=== PATIENT | male | born 1965 | race Caucasian/White ===

== ENCOUNTER 2019-10-19 14:18 | Inpatient (IN) | payer OTHER ==
[2019-10-19 17:15] VITALS: BMI 32.9
--- NOTE | 2019-10-19 17:44 | HP ---
COWS - Scale Resting Pulse: 0= [place] 80 or Below Sweatin=Flushed/Facial Moisture Restless Observation: 0= Sits Still Pupil Size: 0= Normal to Room Light Bone or Joint Aches: 1= Mild Discomfort Runny Nose/ Eye Tearin= Nasal Congestion GI Upset > 30mins: 3= Vomiting/Diarrhea (vomiting x 3, no diarrhea) Tremor Observation: 2= Slight Tremor Visible Yawning Observation: 0= None Anxiety or Irritability: 2=Irritable/Anxious Goose Flesh Skin: 3=Piloerection COWS Score: 14 CIWA Score - Admission Criteria OASAS Guidelines: Admission for Medically Managed Detox: Requires at least one of the followin. CIWA greater than 12 2. Seizures within the past 24 hours 3. Delirium tremens within the past 24 hours 4. Hallucinations within the past 24 hours 5. Acute intervention needed for co occurring medical disorder 6. Acute intervention needed for co occurring psychiatric disorder 7. Severe withdrawal that cannot be handled at a lower level of care (continued vomiting, continued diarrhea, abnormal vital signs) requiring intravenous medication and/or fluids 8. Admission [facility] Chief Complaint: Heroin withdrawal symptoms Allergies/Adverse Reactions: Allergies Allergy/AdvReac Type Severity Reaction Status Date / Time No Known Allergies Allergy Verified 10/19/19 17:39 History of Present Illness: 53 years old male is seeking admission to detox from heroin. This is his first admission to [facility]. He reports that he started using heroin at age 25, stopped using for 12 years, 9 months and started using again in May 2019. His last detoxification was at [facility]. He uses 2 bags of heroin daily. He denies medical history, psych. history and suicidal ideation at this time. He denies blackouts and history of overdose. He is employed in construction, lives with his in [place] and denies legal issues. Exam Limitations: No Limitations - Ebola screening Have you traveled outside of the country in the last 21 days: No Have you had contact with anyone from an Ebola affected area: No Have you been sick,other than usual withdrawal symptoms: No Do you have a fever: No - Review of Systems Constitutional: Chills, Loss of Appetite, Malaise, Night Sweats, Changes in sleep EENT: reports: Nose Congestion Respiratory: reports: No Symptoms reported Cardiac: reports: No Symptoms Reported GI: reports: Constipated, Nausea, Poor Appetite, Poor Fluid Intake, Vomiting (x 3), Abdominal cramping : reports: No Symptoms Reported Musculoskeletal: reports: No Symptoms Reported Integumentary: reports: Dryness, Flushing Neuro: reports: Tremors Endocrine: reports: No Symptoms Reported Hematology: reports: No Symptoms Reported Psychiatric: reports: Mood/Affect Appropiate, Orientated x3 Other Systems: Reviewed and Negative Patient History - Patient Medical History Hx Anemia: No Hx Asthma: No Hx Chronic Obstructive Pulmonary Disease (COPD): No Hx Cancer: No Hx Cardiac Disorders: No Hx Congestive Heart Failure: No Hx Hypertension: No Hx Hypercholesterolemia: No HX Cerebrovascular Accident: No Hx Seizures: No Hx Diabetes: No Hx Gastrointestinal Disorders: No Hx Liver Disease: No Hx Genitourinary Disorders: No Hx Sexually Transmitted Disorders: No Hx Renal Disease (ESRD): No Hx Thyroid Disease: No Hx Human Immunodeficiency Virus (HIV): No (Negative 2008) Hx Hepatitis C: No Hx Depression: Yes Hx Suicide Attempt: No (Denies suicidal ideation at this time) Hx Bipolar Disorder: No Hx Schizophrenia: No - Patient Surgical History Past Surgical History: No - PPD History Previous Implant?: Yes (PPD POSITIVE) Documented Results: Positive w/o proof Implanted On Prior R Admission?: No PPD to be Administered?: No - Reproductive History Patient is a Female of Child Bearing Age (11 -55 yrs old): No (male) - Smoking Cessation Smoking history: Current every day smoker Have you smoked in the past 12 months: Yes Aproximately how many cigarettes per day: 20 Hx Chewing Tobacco Use: No Initiated information on smoking cessation: Yes 'Breaking Loose' booklet given: 10/19/19 - Substance & Tx. History Hx Alcohol Use: No Hx Substance Use: Yes Substance Use Type: Heroin, Opiates Hx Substance Use Treatment: Yes ([place], [place]) - Substances abused Heroin Substance route: Inhalation Frequency: Daily Amount used: 2 bags Age of first use: 25 Date of last use: 10/19/19 Admission Physical Exam BHS - Vital Signs Vital Signs: Vital Signs - 24 hr 10/19/19 17:14 Temperature 97.5 F L Pulse Rate 76 Respiratory 18 Rate Blood Pressure 133/88 - Physical General Appearance: Yes: Moderate Distress, Tremorous, Sweating HEENTM: Yes: Within Normal Limits Respiratory: Yes: Lungs Clear, Normal Breath Sounds, No Respiratory Distress Neck: Yes: Within Normal Limits Breast: Yes: Breast Exam Deferred Cardiology: Yes: Regular Rhythm, Regular Rate Abdominal: Yes: Normal Bowel Sounds, Protuberent Genitourinary: Yes: Within Normal Limits Back: Yes: Normal Inspection Musculoskeletal: Yes: Within Normal Limits Extremities: Yes: Tremors Neurological: Yes: Within Normal Limits Integumentary: Yes: Warm - Diagnostic (1) Opioid dependence, uncomplicated Current Visit: Yes Status: Acute (2) Nicotine dependence Current Visit: Yes Status: Chronic Qualifiers: Nicotine product type: cigarettes Substance use status: uncomplicated Qualified Code(s): F17.210 - Nicotine dependence, cigarettes, uncomplicated (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
[2019-10-19] MEDS ORDERED: MENTHOL/PHENOL 1 EACH UD MM PRN (17:54)
[2019-10-19] MEDS ORDERED: BISMUTH SUBSALICYLATE 524 MG/30 ML UD PO PRN (17:54)
[2019-10-19] MEDS ORDERED: METHOCARBAMOL 500 MG TABLET PO PRN (17:54)
[2019-10-19] MEDS ORDERED: ACETAMINOPHEN 325 MG TABLET (FP) PO PRN ×2 (17:54)
[2019-10-19] MEDS ORDERED: MAGNESIUM HYDROX 2400MG/30ML ORAL SUSPENSION 30 ML CUP PO PRN (17:54)
[2019-10-19] MEDS ORDERED: MAGNESIUM CITRATE 300 ML BOTTLE PO PRN (17:54)
[2019-10-19] MEDS ORDERED: MAG HYDROX/AL HYDROX/SIMETH 30 ML UNIT-DOSE CUP PO PRN (17:54)
[2019-10-19] MEDS ORDERED: IBUPROFEN 400 MG TABLET (FP) PO PRN (17:54)
[2019-10-19] MEDS ORDERED: ONDANSETRON *ODT* 4 MG TABLET SL PRN (17:54)
[2019-10-19] MEDS ORDERED: METHADONE HCL 10 MG TABLET (FOR DETOX USE ONLY) PO ONE (17:58)
[2019-10-19] MEDS ORDERED: METHADONE (DETOX) 20 MG, METHADONE (DETOX) 5 MG PO ONE (19:00)
[2019-10-19] MEDS ORDERED: METHADONE HCL 5 MG TABLET (FOR DETOX USE ONLY) ONE (19:17)
[2019-10-19] MEDS ORDERED: METHADONE HCL 10 MG TABLET (FOR DETOX USE ONLY) ONE (19:17)
[2019-10-19] MEDS: NICOTINE POLACRILEX 2 MG GUM BUC PRN (22:22)
[2019-10-19] MEDS: MELATONIN 5 MG TABLETS PO SCH (22:22)
[2019-10-19] MEDS: THIAMINE HCL 100 MG TABLET (FP) PO SCH (22:22)
[2019-10-20] MEDS ORDERED: MASKS NR ONE (07:02)
--- NOTE | 2019-10-20 09:02 | EKG ---
Test Reason : Blood Pressure : / mmHG Vent. Rate : 065 BPM Atrial Rate : 065 BPM P-R Int : 176 ms QRS Dur : 094 ms QT Int : 410 ms P-R-T Axes : 048 -31 -09 degrees QTc Int : 426 ms NORMAL SINUS RHYTHM LEFT AXIS DEVIATION INCREASED R/S RATIO IN V1, CONSIDER EARLY TRANSITION OR POSTERIOR INFARCT ABNORMAL ECG NO PREVIOUS ECGS AVAILABLE Confirmed by NADINE DUNLAP MD ([id number]) on 10/20/2019 9:02:36 AM Referred By: Confirmed By:NADINE DUNLAP MD
[2019-10-20] MEDS ORDERED: METHADONE HCL 10 MG TABLET (FOR DETOX USE ONLY) PO ONE (10:00)
[2019-10-20] MEDS: NICOTINE 21 MG/24 HOURS TOPICAL PATCH TD SCH (10:25)
[2019-10-20] MEDS: PRENATAL VITAMINS W/ FOLIC ACID TABLET (FP) PO SCH (10:25)
--- NOTE | 2019-10-20 10:40 | PN ---
BHS COWS - Scale Resting Pulse: 0= [place] 80 or Below Sweatin= Chills/Flushing Restless Observation: 0= Sits Still Pupil Size: 0= Normal to Room Light Bone or Joint Aches: 1= Mild Discomfort Runny Nose/ Eye Tearin= Nasal Congestion GI Upset > 30mins: 0= None Tremor Observation of Outstretched Hands: 1= Tremor [place], Not Seen Yawning Observation: 1= 1-2x During Session Anxiety or Irritability: 1=Feels Anxious/Irritable Goose Flesh Skin: 0=Smooth Skin COWS Score: 6 BHS Progress Note (SOAP) Subjective: body aches chills anxiety Objective: 10/20/19 10:39 Vital Signs Temperature 97.5 F L 10/20/19 05:37 Pulse Rate 63 10/20/19 05:37 Respiratory Rate 20 10/20/19 05:37 Blood Pressure 119/70 10/20/19 05:37 O2 Sat by Pulse Oximetry (%) 97 10/20/19 05:37 labs pending [id number] sitting at edge of bed no acute distress Assessment: 10/20/19 10:39 withdrawals Plan: continue detox
[2019-10-20 10:41] LABS: HEMATOCRIT 42.5 % (35.4-49); HEMOGLOBIN 14.4 GM/dL (11.7-16.9); MCH 31.1 pg (25.7-33.7); MCHC 33.9 g/dl (32.0-35.9); MEAN CELL VOLUME 91.8 fl (80-96); MEAN PLT VOLUME 9.7 fl (7.5-11.1); PLATELET COUNT 180 K/MM3 (134-434); RBC 4.62 M/mm3 (4.00-5.60); RDW 13.3 % (11.9-15.9); WHITE BLOOD COUNT 7.9 K/mm3 (4.0-10.0)
[2019-10-20 10:56] LABS: ALBUMIN 3.5 g/dl (3.4-5.0); BILIRUBIN,TOTAL 0.6 mg/dL (0.2-1); BLOOD UREA NITROGEN 15.5 mg/dL (7-18); CALCIUM 9.3 mg/dL (8.5-10.1); CREATININE 0.8 mg/dL (0.55-1.3); TOT PROT 6.7 g/dl (6.4-8.2)
[2019-10-20] MEDS: MELATONIN 5 MG TABLETS PO SCH (22:28)
[2019-10-20] MEDS: THIAMINE HCL 100 MG TABLET (FP) PO SCH (22:28)
[2019-10-20] MEDS: NICOTINE POLACRILEX 2 MG GUM BUC PRN (22:29)
[2019-10-21] MEDS: NICOTINE POLACRILEX 2 MG GUM BUC PRN ×2 (07:20→10:42)
[2019-10-21] MEDS ORDERED: METHADONE HCL 5 MG TABLET (FOR DETOX USE ONLY) PO ONE (10:00)
[2019-10-21] MEDS: PRENATAL VITAMINS W/ FOLIC ACID TABLET (FP) PO SCH (10:42)
[2019-10-21] MEDS: NICOTINE 21 MG/24 HOURS TOPICAL PATCH TD SCH (10:42)
--- NOTE | 2019-10-21 18:04 | PN ---
BHS COWS - Scale Resting Pulse: 1= [place] 81-100 Sweatin= Chills/Flushing Restless Observation: 1= Difficult to Sit Still Pupil Size: 0= Normal to Room Light Bone or Joint Aches: 2= Severe Diffuse Aches Runny Nose/ Eye Tearin= None GI Upset > 30mins: 0= None Tremor Observation of Outstretched Hands: 0= None Yawning Observation: 1= 1-2x During Session Anxiety or Irritability: 2=Irritable/Anxious Goose Flesh Skin: 0=Smooth Skin COWS Score: 8 BHS Progress Note (SOAP) Subjective: Body Aches, Anxious, Chills, Fatigue. Patient reports That Current withdrawal Detox Symptoms in General Are Gradually Beginning to Diminish in Severity. Objective: Patient A & O X 3, Observed Ambulating on Detox Unit Unassisted. In No Acute Distress. 10/21/19 18:04 Vital Signs Temperature 98.1 F 10/21/19 12:35 Pulse Rate 82 10/21/19 12:35 Respiratory Rate 18 10/21/19 12:35 Blood Pressure 139/79 10/21/19 12:35 O2 Sat by Pulse Oximetry (%) 96 10/21/19 12:35 Laboratory Tests 10/19/19 10/20/19 10/20/19 18:50 08:10 08:10 WBC 7.9 RBC 4.62 Hgb 14.4 Hct 42.5 MCV 91.8 MCH 31.1 MCHC 33.9 RDW 13.3 Plt Count 180 MPV 9.7 Sodium Potassium Chloride Carbon Dioxide Anion Gap BUN Creatinine Est GFR (CKD-EPI)AfAm Est GFR (CKD-EPI)NonAf Random Glucose Calcium Total Bilirubin AST ALT Alkaline Phosphatase Total Protein Albumin Syphilis Serology Non-reactive COVID-19 (HARVINDER) Not detected 10/20/19 08:10 WBC RBC Hgb Hct MCV MCH MCHC RDW Plt Count MPV Sodium 138 Potassium 4.0 Chloride 102 Carbon Dioxide 29 Anion Gap 6 L BUN 15.5 Creatinine 0.8 Est GFR (CKD-EPI)AfAm 118.20 Est GFR (CKD-EPI)NonAf 101.99 Random Glucose 98 Calcium 9.3 Total Bilirubin 0.6 AST 14 L ALT 37 Alkaline Phosphatase 118 H Total Protein 6.7 Albumin 3.5 Syphilis Serology COVID-19 (HARVINDER) Lab Results noted. Assessment: 10/21/19 18:05 WITHDRAWAL SYMPTOMS. Plan: Continue Detox. Increase Daily Oral Water Intake.
[2019-10-21] MEDS: THIAMINE HCL 100 MG TABLET (FP) PO SCH (22:13)
[2019-10-21] MEDS: MELATONIN 5 MG TABLETS PO SCH (22:13)
[2019-10-22] MEDS ORDERED: METHADONE HCL 10 MG TABLET (FOR DETOX USE ONLY) PO ONE (10:00)
[2019-10-22] MEDS: NICOTINE 21 MG/24 HOURS TOPICAL PATCH TD SCH (10:24)
[2019-10-22] MEDS: PRENATAL VITAMINS W/ FOLIC ACID TABLET (FP) PO SCH (10:24)
[2019-10-22] MEDS: NICOTINE POLACRILEX 2 MG GUM BUC PRN ×2 (10:25→22:10)
--- NOTE | 2019-10-22 19:03 | PN ---
BHS COWS - Scale Resting Pulse: 0= [place] 80 or Below Sweatin= No chills or Flushing Restless Observation: 0= Sits Still Pupil Size: 0= Normal to Room Light Bone or Joint Aches: 1= Mild Discomfort Runny Nose/ Eye Tearin= Nasal Congestion GI Upset > 30mins: 1= Stomach Cramp Tremor Observation of Outstretched Hands: 0= None Yawning Observation: 0= None Anxiety or Irritability: 1=Feels Anxious/Irritable Goose Flesh Skin: 0=Smooth Skin COWS Score: 4 BHS Progress Note (SOAP) Subjective: Feels ok, patient requesting to be discharged at 6am tomorrow because has to work tomorrow Objective: 10/22/19 19:01 Last Vital Signs Temp Pulse Resp BP Pulse Ox 97.7 F 78 20 144/81 95 10/22/19 09:30 10/22/19 09:30 10/22/19 09:30 10/22/19 09:30 10/22/19 06:07 Elevated b/p noted Laboratory Tests 10/19/19 10/20/19 10/20/19 18:50 08:10 08:10 WBC 7.9 RBC 4.62 Hgb 14.4 Hct 42.5 MCV 91.8 MCH 31.1 MCHC 33.9 RDW 13.3 Plt Count 180 MPV 9.7 Sodium Potassium Chloride Carbon Dioxide Anion Gap BUN Creatinine Est GFR (CKD-EPI)AfAm Est GFR (CKD-EPI)NonAf Random Glucose Calcium Total Bilirubin AST ALT Alkaline Phosphatase Total Protein Albumin Syphilis Serology Non-reactive COVID-19 (HARVINDER) Not detected 10/20/19 08:10 WBC RBC Hgb Hct MCV MCH MCHC RDW Plt Count MPV Sodium 138 Potassium 4.0 Chloride 102 Carbon Dioxide 29 Anion Gap 6 L BUN 15.5 Creatinine 0.8 Est GFR (CKD-EPI)AfAm 118.20 Est GFR (CKD-EPI)NonAf 101.99 Random Glucose 98 Calcium 9.3 Total Bilirubin 0.6 AST 14 L ALT 37 Alkaline Phosphatase 118 H Total Protein 6.7 Albumin 3.5 Syphilis Serology COVID-19 (HARVINDER) Labs reviewed Assessment: 10/22/19 19:01 Withdrawal sxs Elevated b/p noted Plan: Continue detox Encourage PO water intake Pt scheduled for discharge tomorrow Elevated b/p: denies htn, monitor b/p, follow up with PCP for monitoring
[2019-10-22] MEDS: THIAMINE HCL 100 MG TABLET (FP) PO SCH (22:09)
[2019-10-22] MEDS: MELATONIN 5 MG TABLETS PO SCH (22:10)
[2019-10-23 06:25] VITALS: BP 145/95; PULSE 66; TEMP 97.3
--- NOTE | 2019-10-23 07:08 | DS ---
[facility] Detox Discharge Summary Admission Date: 10/19/19 Discharge Date: 10/23/19 - History Additional Comments: Patient is being discharged today. He was detoxed safely and responded well to therapy. He is alert and oriented x 3, ambulates independently, in acute distress and vital signs stable.He has no home medications. Pertinent Past History: Opioid dependence Nicotine dependence PPD positive - Physical Exam Results Vital Signs: Vital Signs Temperature 97.3 F L 10/23/19 05:41 Pulse Rate 66 10/23/19 05:41 Respiratory Rate 20 10/23/19 05:41 Blood Pressure 145/95 10/23/19 05:41 O2 Sat by Pulse Oximetry (%) 100 10/22/19 20:32 Laboratory Last Values WBC 7.9 K/mm3 (4.0-10.0) 10/20/19 08:10 RBC 4.62 M/mm3 (4.00-5.60) 10/20/19 08:10 Hgb 14.4 GM/dL (11.7-16.9) 10/20/19 08:10 Hct 42.5 % (35.4-49) 10/20/19 08:10 MCV 91.8 fl (80-96) 10/20/19 08:10 MCH 31.1 pg (25.7-33.7) 10/20/19 08:10 MCHC 33.9 g/dl (32.0-35.9) 10/20/19 08:10 RDW 13.3 % (11.9-15.9) 10/20/19 08:10 Plt Count 180 K/MM3 (134-434) 10/20/19 08:10 MPV 9.7 fl (7.5-11.1) 10/20/19 08:10 Sodium 138 mmol/L (136-145) 10/20/19 08:10 Potassium 4.0 mmol/L (3.5-5.1) 10/20/19 08:10 Chloride 102 mmol/L (98-107) 10/20/19 08:10 Carbon Dioxide 29 mmol/L (21-32) 10/20/19 08:10 Anion Gap 6 MMOL/L (8-16) L 10/20/19 08:10 BUN 15.5 mg/dL (7-18) 10/20/19 08:10 Creatinine 0.8 mg/dL (0.55-1.3) 10/20/19 08:10 Est GFR (CKD-EPI)AfAm 118.20 10/20/19 08:10 Est GFR (CKD-EPI)NonAf 101.99 10/20/19 08:10 Random Glucose 98 mg/dL (74-106) 10/20/19 08:10 Calcium 9.3 mg/dL (8.5-10.1) 10/20/19 08:10 Total Bilirubin 0.6 mg/dL (0.2-1) 10/20/19 08:10 AST 14 U/L (15-37) L 10/20/19 08:10 ALT 37 U/L (13-61) 10/20/19 08:10 Alkaline Phosphatase 118 U/L (45-117) H 10/20/19 08:10 Total Protein 6.7 g/dl (6.4-8.2) 10/20/19 08:10 Albumin 3.5 g/dl (3.4-5.0) 10/20/19 08:10 Syphilis Serology Non-reactive (NONREACTIVE) 10/20/19 08:10 COVID-19 (HARVINDER) Not detected (Not Detected) 10/19/19 18:50 Labs reviewed Pertinent Admission Physical Exam Findings: Opioid dependence - Medication Discharge Medications: Ambulatory Orders NK [No Known Home Medication] 10/19/19 - Diagnosis (1) Opioid dependence, uncomplicated Current Visit: Yes Status: Chronic (2) Nicotine dependence Current Visit: Yes Status: Chronic Qualifiers: Nicotine product type: cigarettes Substance use status: uncomplicated Qualified Code(s): F17.210 - Nicotine dependence, cigarettes, uncomplicated (3) PPD positive Current Visit: Yes Status: Chronic - AMA Did Patient Leave Against Medical Advice: No
[2019-10-23] MEDS ORDERED: METHADONE HCL 5 MG TABLET (FOR DETOX USE ONLY) PO ONE (10:00)
== END 2019-10-23 06:45 | disposition home or self-care (01) | DRG 773 ==
LOC: YASAS 14:18 → Y6N 18:44
PROVIDERS: ADMIT Allergy & Immunology; ATTEND Allergy & Immunology
PROC: HZ2ZZZZ Detoxification Services for Substance Abuse Treatment (ICD-10-PCS; principal; 2019-10-19)
DX: F11.23 Opioid dependence with withdrawal (principal); F17.210 Nicotine dependence, cigarettes, uncomplicated; F32.9 Major depressive disorder, single episode, unspecified; R76.11 Nonspecific reaction to tuberculin skin test without active tuberculosis
CPT/HCPCS: 36415; 71046-TC-FY; 80053; 85027; 86780; 93005; 93010; U0003

== ENCOUNTER 2022-01-14 10:11 | Inpatient (IN) | payer BC ==
[2022-01-14 10:49] VITALS: BMI 27.8
[2022-01-14] MEDS ORDERED: NICOTINE POLACRILEX 4 MG GUM BUC PRN (11:02)
[2022-01-14] MEDS ORDERED: BENZOCAINE/MENTHOL (CHLORASEPTIC ) LOZENGE MM PRN (11:02)
[2022-01-14] MEDS ORDERED: MAG HYDROX/AL HYDROX/SIMETH 30 ML UNIT-DOSE CUP PO PRN (11:02)
[2022-01-14] MEDS ORDERED: LOPERAMIDE HCL 2 MG CAPSULE PO PRN (11:02)
[2022-01-14] MEDS ORDERED: MAGNESIUM HYDROX 2400MG/30ML ORAL SUSPENSION 30 ML CUP PO PRN (11:02)
[2022-01-14] MEDS ORDERED: IBUPROFEN 400 MG TABLET (FP) PO PRN (11:02)
[2022-01-14] MEDS ORDERED: DICYCLOMINE HCL 10 MG CAPSULE PO PRN (11:02)
[2022-01-14] MEDS ORDERED: POLYETHYLENE GLYCOL (HEALTHYLAX) 3350 17 GM PACKET PO PRN (11:02)
[2022-01-14] MEDS ORDERED: NICOTINE 21 MG/24 HOURS TOPICAL PATCH TD PRN (11:02)
[2022-01-14] MEDS ORDERED: NALOXONE HCL (KLOXXADO) 8 MG SPRAY NS PRN (11:02)
[2022-01-14] MEDS ORDERED: ACETAMINOPHEN 325 MG TABLET (FP) PO PRN ×2 (11:02)
[2022-01-14] MEDS ORDERED: BISMUTH SUBSALICYLATE 262 MG/15 ML BTL PO PRN (11:02)
[2022-01-14] MEDS ORDERED: NICOTINE 10 MG CARTRIDGE (INHALER) IH PRN (11:02)
[2022-01-14] MEDS ORDERED: ONDANSETRON *ODT* 4 MG TABLET SL PRN (11:02)
[2022-01-14] MEDS ORDERED: methaDONE HCL 10 MG TABLET (FOR DETOX USE ONLY) PO ONE (11:02)
[2022-01-14] MEDS ORDERED: methaDONE HCL 10 MG TABLET (FOR DETOX USE ONLY) ONE (12:14)
[2022-01-14] MEDS: hydrOXYzine PAMOATE 25 MG CAPSULE (FP) PO PRN ×2 (16:46→22:51)
[2022-01-14] MEDS: METHOCARBAMOL 500 MG TABLET PO PRN (16:46)
[2022-01-14] MEDS: AMMONIUM LACTATE 12% LOTION 225 GM BOTTLE TP SCH (22:50)
[2022-01-14] MEDS: MELATONIN 5 MG TABLETS PO SCH (22:50)
[2022-01-14] MEDS: THIAMINE HCL 100 MG TABLET (FP) PO SCH (22:50)
[2022-01-15 07:57] VITALS: RESP 18
[2022-01-15] MEDS: hydrOXYzine PAMOATE 25 MG CAPSULE (FP) PO PRN (09:43)
[2022-01-15] MEDS: IBUPROFEN 600 MG TABLET (FP) PO PRN (09:44)
[2022-01-15] MEDS: METHOCARBAMOL 500 MG TABLET PO PRN (09:44)
[2022-01-15] MEDS ORDERED: PRENATAL VITAMINS W/ FOLIC ACID TABLET (FP) PO SCH (10:00)
[2022-01-15 10:10] LABS: HEMATOCRIT 42.6 % (35.4-49); MCH 29.9 pg (25.7-33.7); MCHC 32.9 g/dl (32.0-35.9); MEAN CELL VOLUME 90.9 fl (80-96); MEAN PLT VOLUME 8.9 fl (7.5-11.1); PLATELET COUNT 189 10^3/uL (134-434); RBC 4.69 M/mm3 (4.00-5.60); RDW 13.5 % (11.9-15.9); WHITE BLOOD COUNT 4.6 K/mm3 (4.0-10.0)
[2022-01-15 10:51] LABS: ALBUMIN 3.1 g/dl (3.4-5.0)
[2022-01-15 10:53] LABS: BLOOD UREA NITROGEN 14.2 mg/dL (7-18); CALCIUM 8.9 mg/dL (8.5-10.1)
[2022-01-15 10:55] LABS: BILIRUBIN,TOTAL 0.3 mg/dL (0.2-1); TOT PROT 5.8 g/dl (6.4-8.2)
[2022-01-15] MEDS: AMMONIUM LACTATE 12% LOTION 225 GM BOTTLE TP SCH ×2 (11:11→23:12)
[2022-01-15] MEDS: MELATONIN 5 MG TABLETS PO SCH (23:12)
[2022-01-15] MEDS: THIAMINE HCL 100 MG TABLET (FP) PO SCH (23:12)
[2022-01-16] MEDS: METHOCARBAMOL 500 MG TABLET PO PRN (03:07)
[2022-01-16] MEDS: hydrOXYzine PAMOATE 25 MG CAPSULE (FP) PO PRN (03:07)
[2022-01-16] MEDS: IBUPROFEN 600 MG TABLET (FP) PO PRN (03:08)
[2022-01-16 07:25] VITALS: BP 140/79; PULSE 64; TEMP 97.7
[2022-01-16] MEDS ORDERED: methaDONE HCL 10 MG TABLET (FOR DETOX USE ONLY) PO ONE (10:00)
[2022-01-18] MEDS ORDERED: methaDONE HCL 10 MG TABLET (FOR DETOX USE ONLY) PO ONE (10:00)
== END 2022-01-16 08:07 | disposition left against medical advice (07) | DRG 770 ==
LOC: YASAS 10:11 → Y6N 11:30
PROVIDERS: ADMIT Allergy & Immunology; ATTEND Surgery
PROC: HZ2ZZZZ Detoxification Services for Substance Abuse Treatment (ICD-10-PCS; principal; 2022-01-14)
DX: F11.23 Opioid dependence with withdrawal (principal); F17.210 Nicotine dependence, cigarettes, uncomplicated; U07.1 COVID-19; R76.11 Nonspecific reaction to tuberculin skin test without active tuberculosis
CPT/HCPCS: 36415; 80053; 85027; 86780; 93005; 93010; C9803-CS; U0003; U0005

== ENCOUNTER 2022-05-14 17:26 | Inpatient (IN) | payer BC ==
[2022-05-14 19:17] VITALS: BMI 29.0
[2022-05-14] MEDS ORDERED: P-EPHED 60MG/TRIPROLIDI 2.5MG TABLET PO PRN (20:14)
[2022-05-14] MEDS ORDERED: ACETAMINOPHEN 325 MG TABLET (FP) PO PRN ×2 (20:14)
[2022-05-14] MEDS ORDERED: LOPERAMIDE HCL 2 MG CAPSULE PO PRN (20:14)
[2022-05-14] MEDS ORDERED: BENZOCAINE/MENTHOL (CHLORASEPTIC ) LOZENGE MM PRN (20:14)
[2022-05-14] MEDS ORDERED: DICYCLOMINE HCL 10 MG CAPSULE PO PRN (20:14)
[2022-05-14] MEDS ORDERED: MELATONIN 5 MG TABLETS PO PRN (20:14)
[2022-05-14] MEDS ORDERED: MAG HYDROX/AL HYDROX/SIMETH 30 ML UNIT-DOSE CUP PO PRN (20:14)
[2022-05-14] MEDS ORDERED: IBUPROFEN 600 MG TABLET (FP) PO PRN (20:14)
[2022-05-14] MEDS ORDERED: MAGNESIUM HYDROX 2400MG/30ML ORAL SUSPENSION 30 ML CUP PO PRN (20:14)
[2022-05-14] MEDS ORDERED: NICOTINE POLACRILEX 2 MG GUM BUC PRN (20:14)
[2022-05-14] MEDS ORDERED: NICOTINE 10 MG CARTRIDGE (INHALER) IH PRN (20:14)
[2022-05-14] MEDS ORDERED: POLYETHYLENE GLYCOL (HEALTHYLAX) 3350 17 GM PACKET PO PRN (20:14)
[2022-05-14] MEDS ORDERED: NALOXONE HCL 0.4 MG/ML VIAL IM PRN (20:14)
[2022-05-14] MEDS ORDERED: guaiFENesin 600 MG TABLET.ER (FP) PO PRN (20:14)
[2022-05-14] MEDS ORDERED: NALOXONE HCL (KLOXXADO) 8 MG SPRAY NS PRN (20:14)
[2022-05-14] MEDS ORDERED: hydrOXYzine PAMOATE 25 MG CAPSULE (FP) PO PRN (20:14)
[2022-05-14] MEDS ORDERED: BENZONATATE 200 MG CAPSULE PO PRN (20:14)
[2022-05-14] MEDS ORDERED: IBUPROFEN 400 MG TABLET (FP) PO PRN (20:14)
[2022-05-14] MEDS ORDERED: BISMUTH SUBSALICYLATE 524 MG/30 ML PO PRN (20:14)
[2022-05-14] MEDS ORDERED: ONDANSETRON *ODT* 4 MG TABLET SL PRN (20:14)
[2022-05-14] MEDS: THIAMINE HCL 100 MG TABLET (FP) PO SCH (23:00)
[2022-05-15] MEDS ORDERED: methaDONE HCL 10 MG TABLET (FOR DETOX USE ONLY) PO ONE (07:25)
[2022-05-15] MEDS ORDERED: cloNIDine HCL 0.1 MG TABLET PO PRN (07:25)
[2022-05-15] MEDS: PRENATAL VITAMINS W/ FOLIC ACID TABLET (FP) PO SCH (11:01)
[2022-05-15 11:33] LABS: HEMATOCRIT 39.7 % (35.4-49); HEMOGLOBIN 13.5 GM/dL (11.7-16.9); MCH 30.6 pg (25.7-33.7); MEAN CELL VOLUME 90.1 fl (80-96); MEAN PLT VOLUME 8.7 fl (7.5-11.1); PLATELET COUNT 205 10^3/uL (134-434); RDW 13.2 % (11.9-15.9); WHITE BLOOD COUNT 7.2 K/mm3 (4.0-10.0)
[2022-05-15 11:50] LABS: BLOOD UREA NITROGEN 15.8 mg/dL (7-18)
[2022-05-15 11:53] LABS: CREATININE 0.8 mg/dL (0.55-1.3)
[2022-05-15 11:55] LABS: BILIRUBIN,TOTAL 0.4 mg/dL (0.2-1); TOT PROT 5.8 g/dl (6.4-8.2)
[2022-05-15] MEDS: THIAMINE HCL 100 MG TABLET (FP) PO SCH (22:56)
[2022-05-16 09:41] VITALS: BP 164/116; PULSE 89; RESP 17; TEMP 97.6
[2022-05-16] MEDS: PRENATAL VITAMINS W/ FOLIC ACID TABLET (FP) PO SCH (09:45)
[2022-05-17] MEDS ORDERED: methaDONE HCL 10 MG TABLET (FOR DETOX USE ONLY) PO ONE (10:00)
[2022-05-19] MEDS ORDERED: methaDONE HCL 10 MG TABLET (FOR DETOX USE ONLY) PO ONE (10:00)
== END 2022-05-16 10:30 | disposition left against medical advice (07) | DRG 770 ==
LOC: YASAS 17:26 → Y6N 20:29 → UNDOADMIN 20:29
PROVIDERS: ADMIT Allergy & Immunology; ATTEND Surgery
PROC: HZ2ZZZZ Detoxification Services for Substance Abuse Treatment (ICD-10-PCS; principal; 2022-05-14)
DX: F11.23 Opioid dependence with withdrawal (principal); F14.20 Cocaine dependence, uncomplicated; F17.210 Nicotine dependence, cigarettes, uncomplicated
CPT/HCPCS: 36415; 71046-TC-FY; 80053; 85027; 86780; 93005; 93010; C9803-CS; U0003; U0005

== ENCOUNTER 2023-11-12 19:49 | Inpatient (IN) | payer BC ==
[2023-11-12 20:19] VITALS: BMI 32.1
[2023-11-12] MEDS ORDERED: NALOXONE (NARCAN) HCL 4 MG/0.1 ML SPRAY NS PRN (21:51)
[2023-11-12] MEDS ORDERED: MAG HYDROX/AL HYDROX/SIMETH 30 ML UNIT-DOSE CUP PO PRN (21:51)
[2023-11-12] MEDS ORDERED: ACETAMINOPHEN 325 MG TABLET (FP) PO PRN (21:51)
[2023-11-12] MEDS ORDERED: NICOTINE POLACRILEX 2 MG GUM BUC PRN (21:51)
[2023-11-12] MEDS ORDERED: BENZOCAINE/MENTHOL (CHLORASEPTIC ) LOZENGE MM PRN (21:51)
[2023-11-12] MEDS ORDERED: DICYCLOMINE HCL 10 MG CAPSULE PO PRN (21:51)
[2023-11-12] MEDS ORDERED: MAGNESIUM HYDROX 2400MG/30ML ORAL SUSPENSION 30 ML CUP PO PRN (21:51)
[2023-11-12] MEDS ORDERED: IBUPROFEN 400 MG TABLET (FP) PO PRN (21:51)
[2023-11-12] MEDS ORDERED: guaiFENesin 600 MG TABLET.ER (FP) PO PRN (21:51)
[2023-11-12] MEDS ORDERED: BISMUTH SUBSALICYLATE 524 MG/30 ML PO PRN (21:51)
[2023-11-12] MEDS ORDERED: LOPERAMIDE HCL 2 MG CAPSULE PO PRN (21:51)
[2023-11-12] MEDS ORDERED: BENZONATATE 200 MG CAPSULE PO PRN (21:51)
[2023-11-12] MEDS ORDERED: POLYETHYLENE GLYCOL (HEALTHYLAX) 3350 17 GM PACKET PO PRN (21:51)
[2023-11-12] MEDS ORDERED: ONDANSETRON *ODT* 4 MG TABLET SL PRN (21:51)
[2023-11-12] MEDS ORDERED: MELATONIN 5 MG TABLETS ONE (22:06)
[2023-11-12] MEDS ORDERED: methaDONE HCL 10 MG TABLET (FOR DETOX USE ONLY) ONE (22:06)
[2023-11-12] MEDS: methaDONE HCL 10 MG TABLET (FOR DETOX USE ONLY) PO ONE (22:19)
[2023-11-12] MEDS: MELATONIN 5 MG TABLETS PO SCH (22:20)
[2023-11-12] MEDS: THIAMINE 100 MG TABLET PO SCH (22:20)
[2023-11-12] MEDS: METHOCARBAMOL 500 MG TABLET PO PRN (23:03)
[2023-11-12] MEDS: hydrOXYzine PAMOATE 25 MG CAPSULE (FP) PO PRN (23:03)
[2023-11-12] MEDS: cloNIDine HCL 0.1 MG TABLET PO PRN (23:03)
[2023-11-12] MEDS: IBUPROFEN 600 MG TABLET (FP) PO PRN (23:03)
[2023-11-12] MEDS: NALOXONE (NYS OPIOID OVERDOSE PROGRAM) 4 MG/0.1 ML SPRAY NS ONE (23:06)
[2023-11-13] MEDS: NICOTINE 14 MG/24 HOURS TOPICAL PATCH TD SCH (09:17)
[2023-11-13] MEDS: PRENATAL VITAMINS W/ FOLIC ACID TABLET (FP) PO SCH (09:17)
[2023-11-13 11:24] LABS: HEMATOCRIT 40.6 % (35.4-49); HEMOGLOBIN 14.1 GM/dL (11.7-16.9); MCH 31.1 pg (25.7-33.7); MCHC 34.7 g/dl (32.0-35.9); MEAN CELL VOLUME 89.6 fl (80-96); MEAN PLT VOLUME 8.5 fl (7.5-11.1); PLATELET COUNT 202 10^3/uL (134-434); RBC 4.53 M/mm3 (4.00-5.60); RDW 13.5 % (11.9-15.9); WHITE BLOOD COUNT 8.4 K/mm3 (4.0-10.0)
[2023-11-13 12:37] VITALS: BP 118/73; PULSE 69; RESP 18; TEMP 99.1
[2023-11-13 14:28] LABS: CHLORIDE 106 mmol/L (98-107); POTASSIUM 3.4 mmol/L (3.5-5.1); SODIUM 139 mmol/L (136-145)
[2023-11-13 14:30] LABS: CALCIUM 9.1 mg/dL (8.5-10.1)
[2023-11-13 14:31] LABS: ALBUMIN 3.2 g/dl (3.4-5.0); ANION GAP 6 mmol/L (4-13); BLOOD UREA NITROGEN 17.9 mg/dL (7-18); CO2 27 mmol/L (21-32); GLUCOSE,RANDOM 152 mg/dL (74-106)
[2023-11-13 14:34] LABS: SGOT/AST 11 U/L (15-37); SGPT/ALT 15 U/L (13-61)
[2023-11-13 14:35] LABS: BILIRUBIN,TOTAL 0.6 mg/dL (0.2-1)
[2023-11-13 14:36] LABS: TOT PROT 6.2 g/dl (6.4-8.2)
[2023-11-13 14:37] LABS: ALK PHOS 97 U/L (45-117)
[2023-11-13] MEDS ORDERED: diazePAM 5 MG TABLET PO PRN (15:17)
[2023-11-14] MEDS ORDERED: methaDONE HCL 10 MG TABLET (FOR DETOX USE ONLY) PO ONE (10:00)
[2023-11-16] MEDS ORDERED: methaDONE HCL 10 MG TABLET (FOR DETOX USE ONLY) PO ONE (10:00)
== END 2023-11-13 16:04 | disposition left against medical advice (07) | DRG 770 ==
LOC: YASAS 19:49 → Y6N 22:29
PROVIDERS: ADMIT Allergy & Immunology; ATTEND Surgery
PROC: HZ2ZZZZ Detoxification Services for Substance Abuse Treatment (ICD-10-PCS; principal; 2023-11-12)
DX: F11.23 Opioid dependence with withdrawal (principal); F14.20 Cocaine dependence, uncomplicated; F12.20 Cannabis dependence, uncomplicated; F17.210 Nicotine dependence, cigarettes, uncomplicated; F19.282 Other psychoactive substance dependence with psychoactive substance-induced sleep disorder; R76.11 Nonspecific reaction to tuberculin skin test without active tuberculosis
CPT/HCPCS: 36415; 80053; 80305; 80307; 85027; 86780; 93005; 93010